=== PATIENT | male | born 1965 | race Two or more races ===

== ENCOUNTER 2021-04-30 06:39 | Emergency (ER) | payer OTHER, MEDICAID ==
[~2021-04-30] VITALS: Ht 175.3 cm; Wt 79.0 kg
[2021-04-30] MEDS ORDERED: MORPHINE SULFATE 4 MG/ML CPJ (NOT FOR IM USE) IV ONE (07:00)
[2021-04-30] MEDS ORDERED: KETOROLAC 30MG/ML VIAL IV ONE (08:30)
[2021-04-30] MEDS ORDERED: IBUP-2028 PO (09:27)
[2021-04-30 09:43] VITALS: BP 128/73
== END 2021-04-30 09:47 | disposition home or self-care (01) ==
LOC: ER 06:39
DX: M54.5 Low back pain (principal); R51.9 Headache, unspecified; Z91.81 History of falling; M47.892 Other spondylosis, cervical region; M47.817 Spondylosis without myelopathy or radiculopathy, lumbosacral region; Z98.890 Other specified postprocedural states
CPT/HCPCS: 70450; 72125; 72131; 96374; 99285; J1885; J2270